=== PATIENT | male | born 1980 | race Caucasian/White ===

== ENCOUNTER 2017-09-02 10:18 | Emergency (ER) | payer BC ==
[2017-09-02 11:17] VITALS: BP 134/93
--- NOTE | 2017-09-02 12:16 | UC ---
Throat Pain/Nasal Matthew HPI - HPI Summary HPI Summary: PT STATES ILL WITH FLU 1-2 WEEKS AGO. ALL THE FLU SYMPTOMS RESOLVED EXCEPT FOR HIS SORE THROAT. HE DENIES FEVER OR TROUBLE WITH SWALLOW. HE ALSO NOTES A BUMP INSIDE HIS LOWER LIP FOR A "LONG TIME" HE WOULD LIKE CHECKED. NO HX REFLUX. - History of Current Complaint Chief Complaint: UCRespiratory Stated Complaint: SORE THROAT Time Seen by Provider: 09/02/17 11:44 Hx Obtained From: Patient Onset/Duration: Gradual Onset Pain Intensity: 4 Associated Signs & Symptoms: Positive: Negative - Epiglottits Risk Factors Epiglottis Risk Factors: Negative - Allergies/Home Medications Allergies/Adverse Reactions: Allergies Allergy/AdvReac Type Severity Reaction Status Date / Time No Known Allergies Allergy Verified 09/02/17 11:17 PMH/Surg Hx/FS Hx/Imm Hx Previously Healthy: Yes - Surgical History Surgical History: Yes Surgery Procedure, Year, and Place: left eye surgery for "lazy eye" - Family History Known Family History: Positive: None - Social History Alcohol Use: Rare Substance Use Type: None Smoking Status (MU): Never Smoked Tobacco - Immunization History Vaccination Up to Date: Yes Review of Systems Constitutional: Negative Skin: Negative Eyes: Negative ENT: Sore Throat Respiratory: Negative Cardiovascular: Negative Gastrointestinal: Negative Genitourinary: Negative Motor: Negative Neurovascular: Negative Musculoskeletal: Negative Neurological: Negative Psychological: Negative Is Patient Immunocompromised?: No All Other Systems Reviewed And Are Negative: Yes Physical Exam Triage Information Reviewed: Yes Appearance: Well-Appearing Vital Signs: Initial Vital Signs Temp 98.4 F 09/02/17 11:11 Pulse 84 09/02/17 11:11 Resp 18 09/02/17 11:11 BP 134/93 09/02/17 11:11 Pulse Ox 100 09/02/17 11:11 Vital Signs Reviewed: Yes Eye Exam: Normal ENT: Positive: Hearing grossly normal, Pharyngeal erythema, TMs normal, Uvula midline. Negative: Nasal congestion, Nasal drainage, Tonsillar swelling, Tonsillar exudate, Trismus, Muffled voice, Hoarse voice Neck: Positive: Supple, Nontender, No Lymphadenopathy Respiratory: Positive: Lungs clear, Normal breath sounds, No respiratory distress Cardiovascular: Positive: RRR, No Murmur, Pulses Normal Abdomen Description: Positive: Nontender, No Organomegaly, Soft Bowel Sounds: Positive: Present Neurological: Positive: Alert Psychological: Positive: Age Appropriate Behavior Skin Exam: Normal Diagnostics - Laboratory Diagnostic Studies Completed/Ordered: rapid strep=neg, tc=pending Throat Pain/Nasal Course/Dx - Course Course Of Treatment: rapid strep-neg. pharyngitis on exam thus will cover for presumptive bacterial infection given duration. will refer to ent for f/u of lower lip lesion-probable mucocele. - Differential Dx/Diagnosis Provider Diagnoses: pharyngitis. Low lip lesion Discharge - Discharge Plan Condition: Stable Disposition: HOME Prescriptions: Amoxicillin/Clavulanate TAB* [Augmentin TAB 875*] 875 mg PO BID 10 Days #20 tab Patient Education Materials: Pharyngitis (ED) Referrals: David Savage MD [Medical Doctor] - 5 Days
== END 2017-09-02 12:56 | disposition home or self-care (01) ==
LOC: UCCORT 10:18
DX: J02.9 Acute pharyngitis, unspecified (principal); K13.0 Diseases of lips
CPT/HCPCS: 87070; 87651; 99212; G0463

== ENCOUNTER 2018-02-23 11:10 | Emergency (ER) | payer BC ==
[2018-02-23] MEDS ORDERED: Lidocaine 2% W/EPI 1:100,000* 20 ML MDV INJ ONE (12:53)
[2018-02-23] MEDS ORDERED: Tetan/Diph/Pertus SYR(Tdap)* 0.5 ML SYR(BOOSTRIX) use SYR IM ONE (12:58)
[2018-02-23] MEDS ORDERED: Naproxen TAB* 250 MG PO ONE (13:02)
--- NOTE | 2018-02-23 13:07 | UC ---
Head Injury HPI - HPI Summary HPI Summary: 37 year old male presents with head injury s/p fall. States he slipped in the shower this morning and struck his head on corner of ceramic tile wall. Sustained laceration to right forehead above right eye. Bleeding controlled at time of exam. Also injured left index and ring finger when he tried to grab the shower head as well as right lateral thigh which he struck on unknown part of tub. Has mild ALEMAN. He is able to recall entire event. Was immediately ambulatory after the fall and at clinic. Denies LOC, visual disturbances, dizziness, weakness, chest pain, palpitations, shortness of breath, neck pain, abdominal pain, nausea or vomiting. - History Of Current Complaint Chief Complaint: UCLaceration Stated Complaint: FALL,HEAD LACERATION Time Seen by Provider: 02/23/18 12:38 Hx Obtained From: Patient Onset/Duration: Sudden Onset Pain Intensity: 7 Associated Signs And Symptoms: Negative: LOC (Time In Secs./Mins/Hrs), Confusion , Memory Loss, Seizure, Neck Pain, Nausea, Vomiting - Risk Factors SDH Risk Factor: Negative - Allergies/Home Medications Allergies/Adverse Reactions: Allergies Allergy/AdvReac Type Severity Reaction Status Date / Time No Known Allergies Allergy Verified 02/23/18 11:27 Home Medications: Home Medications NK [No Home Medications Reported] 02/23/18 [History Confirmed 02/23/18] PMH/Surg Hx/FS Hx/Imm Hx - Additional Past Medical History Additional PMH: non-contributory Previously Healthy: Yes - Surgical History Surgical History: Yes Surgery Procedure, Year, and Place: left eye surgery for "lazy eye" - Family History Known Family History: Positive: None - Social History Occupation: Employed Full-time Lives: With Family Alcohol Use: Rare Substance Use Type: None Smoking Status (MU): Never Smoked Tobacco - Immunization History Most Recent Tetanus Shot: Not UTD Vaccination Up to Date: Yes Review of Systems Constitutional: Negative Skin: Other - laceration forehead, skin tear left index finger, hematoma left lateral thigh Eyes: Negative ENT: Negative Respiratory: Negative Cardiovascular: Negative Gastrointestinal: Negative Motor: Negative Neurovascular: Negative Musculoskeletal: Other: - pain left ring finger Neurological: Headache Is Patient Immunocompromised?: No All Other Systems Reviewed And Are Negative: Yes Physical Exam Triage Information Reviewed: Yes Appearance: Well-Appearing, No Pain Distress, Well-Nourished Vital Signs: Initial Vital Signs Temp 98.7 F 02/23/18 11:22 Pulse 78 02/23/18 11:22 Resp 18 02/23/18 11:22 BP 151/85 02/23/18 11:22 Pulse Ox 99 02/23/18 11:22 Vital Signs Reviewed: Yes Eyes: Positive: Conjunctiva Clear, Other: - PERRL ENT: Positive: Normal ENT inspection Neck: Positive: Supple, Nontender Respiratory: Positive: Chest non-tender, Lungs clear, Normal breath sounds, No respiratory distress Cardiovascular: Positive: RRR, No Murmur, Pulses Normal, Brisk Capillary Refill Abdomen Description: Positive: Nontender, No Organomegaly, Soft Musculoskeletal: Positive: Strength Intact, ROM Intact, Other: - tenderness left ring finger over middle phalanx Neurological Exam: Normal Skin: Positive: significant lesion(s) - Linear laceration right forehead over eyebrow involving subcutaneous layer. Small skin tear to palmar aspect of left ring finger over proximal phalanx. Large hematoma approximately 4-5 cm in diameter to right lateral thigh. Procedures - Laceration/Wound Repair 1 Location: head - right forehead immediately above the eyebrow Description: Linear Anesthesia: Local, 2.0%, Epi - 2 ml Length, Depth and Shape: 4 cm linear involving the sub cutaneous layer Betadine Prep?: Yes Irrigated w/ Saline (ccs): 250 Laceration/Wound Explored: clean Closure: Multilayer Suture Type: Prolene - 5.0, Other - 5.0 polysorb Number of Sutures: 11 - running suture with 5.0 prolene 11 throws Layer Closure?: Yes - 2 subcutanous interrupted sutures with 5.0 polysorb Sterile Dressing Applied?: Yes - antibiotic ointment and non-stick guaze Diagnostics - Radiology No standard instances Xray Interpretation: No Acute Changes - left ring finger Radiology Interpretation Completed By: ED Physician - Preliminary reading by myself, Radiologist Head Injury Course/Dx - Course Course Of Treatment: 37 year old male with closed head injury, laceration right forehead, superficial skin tear left index finger, and hematoma right lateral thigh s/p slip and fall in shower. Neurologically intact. Layered laceration repair performed. X-ray left ring finger negative for fracture/dislocation. Superficial skin tear to left index finger that does not require repair. Hematoma right lateral thigh. Reviewed warning symptoms of closed head injury, wound care, signs and symptoms infection, and timing of suture removal with patient. Verbalizes understanding and agrees with POC. - Differential Dx/Diagnosis Provider Diagnoses: right forehead laceration, superficial skin tear left index finger, contusion right lateral thigh Discharge - Sign-Out/Discharge Documenting (check all that apply): Patient Departure - Discharge Plan Condition: Stable Disposition: HOME Patient Education Materials: Care For Your Stitches (ED), Head Injury (ED), Hematoma (ED), Facial Laceration (ED) Referrals: Nestor Garcia MD [Primary Care Provider] - 7 Days (suture removal) Additional Instructions: You had both internal and external sutures used to repair your laceration today. The internal sutures will dissolve on their own over time however the external sutures will need to be removed in 7 days. You may return here or go to your primary care provider to have this done. The numbing medication used during the laceration repair will wear off in about 3-4 hours. You may take an over the counter pain medication such as acetaminophen (Tylenol) or ibuprofen (Advil, Motrin) according to directions as needed for pain. You should keep the dressing applied to your wound in place for next 24 hours. Avoid getting this wet. After 24 hours, you may remove the dressing and shower as usual. Avoid submerging the wound under water to avoid infection. You should gently clean the wound at least once every day with soap and water. Apply a small amount of antibiotic ointment such as bacitracin to the wound and keep covered with a bandage. This should be changes at least once daily or anytime the dressing becomes wet or soiled. Watch for signs of wound infection such as fever greater than 100.5 F, increased pain, redness, swelling or pus draining from the wound. Seek immediate medical attention should any of these occur. Avoid exposing the wound to the sun to minimize scarring. Once the wound is healed, you should apply sunscreen to the area. Be sure to review the information provided to you regarding head injuries especially warning signs that would require immediate medical attention in the emergency room. Apply ice to the hematoma on your right thigh for 15-20 minutes 3-4 times a day for next few days to help reduce swelling. Keep the skin tear on your left index finger clean with soap and water and cover with bandage. Watch for signs of infection as above. Your tetanus was up dated today. Be sure to inform your primary care provider of this for their records. - Billing Disposition and Condition Condition: STABLE Disposition: Home Images Head: 1 - laceration Hands: 1 - small superficial skin tear 0.5 cm in diamter Front/Back of Body, Lg ([place]): 1 - 4-5 cm hematoma
[2018-02-23 13:25] VITALS: BP 139/92
--- NOTE | 2018-02-23 13:30 | RAD ---
INDICATION: Left ring finger injury. TECHNIQUE: 3 views of the left ring finger were obtained. FINDINGS: The bones are normal alignment. No fracture is seen. Joint spaces appear maintained. IMPRESSION: NO EVIDENCE FOR FRACTURE.
== END 2018-02-23 14:25 | disposition home or self-care (01) ==
LOC: UCCORT 11:10
DX: S01.81XA Laceration without foreign body of other part of head, initial encounter (principal); S61.211A Laceration without foreign body of left index finger without damage to nail, initial encounter; S70.11XA Contusion of right thigh, initial encounter; W01.198A Fall on same level from slipping, tripping and stumbling with subsequent striking against other object, initial encounter; Y93.E1 Activity, personal bathing and showering; Y92.002 Bathroom of unspecified non-institutional (private) residence as the place of occurrence of the external cause; Z23 Encounter for immunization
CPT/HCPCS: 12052; 73140; 90471; 90715; 99212; A9270-GY; G0463

== ENCOUNTER 2018-03-04 11:04 | Emergency (ER) | payer BC ==
[2018-03-04 11:26] VITALS: BP 148/85
--- NOTE | 2018-03-04 11:28 | UC ---
HPI Wound/Suture Re-check - HPI Summary HPI Summary: Pt presents for suture removal above right eye brow that were placed here on 07/01. - History Of Current Complaint Chief Complaint: AYLAkin Stated Complaint: REMOVAL OF STITCHES Time Seen by Provider: 03/04/18 11:27 Hx Obtained From: Patient Onset/Duration: Sudden Onset, Still Present Severity: Mild Pain Intensity: 0 - Allergies/Home Medications Allergies/Adverse Reactions: Allergies Allergy/AdvReac Type Severity Reaction Status Date / Time No Known Allergies Allergy Verified 03/04/18 11:22 PMH/Surg Hx/FS Hx/Imm Hx Previously Healthy: Yes - Surgical History Surgical History: Yes Surgery Procedure, Year, and Place: left eye surgery for "lazy eye" - Family History Known Family History: Positive: Cardiac Disease - Social History Occupation: Employed Full-time Lives: With Family Alcohol Use: Rare Substance Use Type: None Smoking Status (MU): Never Smoked Tobacco Have You Smoked in the Last Year: No - Immunization History Most Recent Tetanus Shot: Not UTD Vaccination Up to Date: Yes Review of Systems Constitutional: Negative Skin: Other - sutures in tact Eyes: Negative ENT: Negative Respiratory: Negative Cardiovascular: Negative Gastrointestinal: Negative Genitourinary: Negative Motor: Negative Neurovascular: Negative Musculoskeletal: Negative Neurological: Negative Psychological: Negative Is Patient Immunocompromised?: No All Other Systems Reviewed And Are Negative: Yes Physical Exam Triage Information Reviewed: Yes Appearance: Well-Appearing Vital Signs: Initial Vital Signs Temp 98.3 F 03/04/18 11:23 Pulse 80 03/04/18 11:23 Resp 14 03/04/18 11:23 BP 148/85 03/04/18 11:23 Pulse Ox 97 03/04/18 11:23 Vital Signs Reviewed: Yes Eye Exam: Normal ENT Exam: Normal Dental Exam: Normal Neck exam: Normal Respiratory: Positive: No respiratory distress Musculoskeletal Exam: Normal Neurological Exam: Normal Psychological Exam: Normal Skin Exam: Other - sutures intact, edges well approximated, no erythema, discharge, swelling or tenderness at site. Course/Dx - Course Course Of Treatment: one continuous suture removed from above right eyebrow. Pt tolerated well. wound healing without sign or sx of infection. edges well approximated. - Differential Dx - Laceration/Wound Differential Diagnoses: Suture Removal Provider Diagnoses: suture removal Discharge - Sign-Out/Discharge Documenting (check all that apply): Patient Departure All imaging exams completed and their final reports reviewed: No Studies - Discharge Plan Condition: Stable Disposition: HOME Patient Education Materials: Stitches Removal (ED) Referrals: Nestor Garcia MD [Primary Care Provider] - If Needed - Billing Disposition and Condition Condition: STABLE Disposition: Home
== END 2018-03-04 11:40 | disposition home or self-care (01) ==
LOC: UCCORT 11:04
DX: Z48.02 Encounter for removal of sutures (principal)

== ENCOUNTER 2018-09-16 15:36 | Emergency (ER) | payer BC ==
[2018-09-16 15:42] VITALS: BP 149/86
--- NOTE | 2018-09-16 15:58 | UC ---
Respiratory Complaint HPI - HPI Summary HPI Summary: 38 yo male presents with dry cough for 1 week. He has been taking mucinex and theraflu with no relief. Denies fever, chills, sinus symptoms, sore throat, SOB , chest pain, n/v. He does not smoke. - History of Current Complaint Chief Complaint: UCGeneralIllness Stated Complaint: COUGH Time Seen by Provider: 09/16/18 15:58 Hx Obtained From: Patient Onset/Duration: Gradual Onset Severity Currently: None Pain Intensity: 0 Character: Cough: Nonproductive - Allergies/Home Medications Allergies/Adverse Reactions: Allergies Allergy/AdvReac Type Severity Reaction Status Date / Time No Known Allergies Allergy Verified 09/16/18 15:42 Home Medications: Home Medications D-Methorphan/PE/Acetaminophen [Theraflu Expressmax Sever 20-10-650 mg/30Ml] 1 liq PO 09/16/18 [History] Guaifenesin/Dextromethorphan [Cough Dm Syrup] 118 ml PO 09/16/18 [History] PMH/Surg Hx/FS Hx/Imm Hx - Additional Past Medical History Additional PMH: None - Surgical History Surgical History: Yes Surgery Procedure, Year, and Place: left eye surgery for "lazy eye" - Family History Known Family History: Positive: Cardiac Disease - Social History Occupation: Employed Full-time Lives: With Family Alcohol Use: Rare Substance Use Type: None Smoking Status (MU): Never Smoked Tobacco Have You Smoked in the Last Year: No - Immunization History Most Recent Tetanus Shot: Not UTD Vaccination Up to Date: Yes Review of Systems All Other Systems Reviewed And Are Negative: Yes Constitutional: Positive: Negative Skin: Positive: Negative Eyes: Positive: Negative ENT: Positive: Negative Respiratory: Positive: Cough Cardiovascular: Positive: Negative Gastrointestinal: Positive: Negative Neurovascular: Positive: Negative Neurological: Positive: Negative Psychological: Positive: Negative Physical Exam - Summary Physical Exam Summary: GENERAL: NAD. WDWN. No pain distress. SKIN: No rashes, sores, lesions, or open wounds. HEENT: Head: AT/NC Eyes: EOM intact. Conjunctiva clear without inflammation or discharge. Ears: Hearing grossly normal. TMs intact, no bulging, erythema, or edema. Nose: Nasal mucosa pink and moist. NTTP maxillary and frontal sinus. Throat: Posterior oropharynx without exudates, erythema, or tonsillar enlargement. Uvula midline. NECK: Supple. Nontender. No lymphadenopathy. CHEST: CTAB. No r/r/w. No accessory muscle use. Breathing comfortably and in no distress. CV: RRR. Without m/r/g. Pulses intact. Cap refill <2seconds NEURO: Alert. PSYCH: Age appropriate behavior. Triage Information Reviewed: Yes Vital Signs: Initial Vital Signs Temp 99.2 F 09/16/18 15:38 Pulse 88 09/16/18 15:38 Resp 18 09/16/18 15:38 BP 149/86 09/16/18 15:38 Pulse Ox 98 09/16/18 15:38 Vital Signs Reviewed: Yes Respiratory Course/Dx - Course Course Of Treatment: Afebrile and exam WNL - suspect viral cough. - Differential Dx/Diagnosis Provider Diagnosis: Cough Discharge - Sign-Out/Discharge Documenting (check all that apply): Patient Departure All imaging exams completed and their final reports reviewed: No Studies - Discharge Plan Condition: Stable Disposition: HOME Prescriptions: Benzonatate CAP* [Tessalon 100 MG CAP*] 100 mg PO TID PRN #21 cap PRN Reason: Cough Codeine Phosphate/Guaifenesin [Guaifen-Codeine 100-10 mg/5 ml] 5 ml PO BEDTIME PRN #35 ml MDD 5mL PRN Reason: Cough Patient Education Materials: Acute Cough (ED) Referrals: Nestor Garcia MD [Primary Care Provider] - Additional Instructions: If you develop a fever, shortness of breath, chest pain, new or worsening symptoms - please call your PCP or go to the ED. Your blood pressure was high at todays visit. Please see your primary provider within 4 weeks for recheck and re-evaluation. - Billing Disposition and Condition Condition: STABLE Disposition: Home
== END 2018-09-16 16:11 | disposition home or self-care (01) ==
LOC: UCEAST 15:36
DX: R05 Cough (principal)
CPT/HCPCS: 99212; G0463

== ENCOUNTER 2019-06-05 12:24 | Emergency (ER) | payer BC ==
[2019-06-05 13:00] VITALS: BP 148/91
--- NOTE | 2019-06-05 13:46 | ED ---
GI/ HPI - HPI Summary HPI Summary: 38 yr old male with the complaint of dysuria today, but afew days of feeling like he has no need to urinate at all. He states he gets up to try to urinate, but nothing comes. He has no back pain, no pain in the scrotum or penis at this time. No discharge. No focal weakness or numbness in the legs. - History of Current Complaint Chief Complaint: UCGU Time Seen by Provider: 06/05/19 13:15 Stated Complaint: URINARY COMPLAINT Pain Intensity: 0 - Allergy/Home Medications Allergies/Adverse Reactions: Allergies Allergy/AdvReac Type Severity Reaction Status Date / Time No Known Allergies Allergy Verified 06/05/19 13:00 Home Medications: Home Medications PARoxetine HCL TAB* [Paxil TAB*] 20 mg PO DAILY 06/05/19 [History Confirmed ] PMH/Surg Hx/FS Hx/Imm Hx Endocrine/Hematology History: Denies: Hx Diabetes, Hx Thyroid Disease Cardiovascular History: Denies: Hx Hypertension Respiratory History: Denies: Hx Asthma, Hx Chronic Obstructive Pulmonary Disease (COPD) GI History: Denies: Hx Ulcer - Surgical History Surgery Procedure, Year, and Place: left eye surgery for "lazy eye" Infectious Disease History: No Infectious Disease History: Denies: Hx Clostridium Difficile, Hx Hepatitis, Hx Human Immunodeficiency Virus (HIV), Hx of Known/Suspected MRSA, Hx Shingles, Hx Tuberculosis, Hx Known/ Suspected VRE, Hx Known/Suspected VRSA, History Other Infectious Disease, Traveled Outside the [place] in Last 30 Days - Family History Known Family History: Positive: None, Cardiac Disease - Social History Alcohol Use: Rare Substance Use Type: Reports: None Smoking Status (MU): Never Smoked Tobacco Have You Smoked in the Last Year: No Review of Systems Constitutional: Negative Positive: see HPI, dysuria All Other Systems Reviewed And Are Negative: Yes Physical Exam Triage Information Reviewed: Yes Vital Signs On Initial Exam: Initial Vitals Temp Pulse Resp BP Pulse Ox 99.3 F 92 18 148/91 100 06/05/19 12:54 06/05/19 12:54 06/05/19 12:54 06/05/19 12:54 06/05/19 12:54 Vital Signs Reviewed: Yes Appearance: Positive: Well-Appearing, No Pain Distress Skin: Positive: Warm, Skin Color Reflects Adequate Perfusion Head/Face: Positive: Normal Head/Face Inspection Eyes: Positive: EOMI ENT: Positive: Normal ENT inspection Neck: Positive: Nontender Respiratory/Lung Sounds: Positive: Clear to Auscultation, Breath Sounds Present Cardiovascular: Positive: RRR. Negative: Murmur Abdomen Description: Positive: Nontender. Negative: CVA Tenderness (R), CVA Tenderness (L) Male Genital Exam: Positive: Normal Genitalia, No Hernia. Negative: Hernia Mass , Scrotum Tenderness (R), Scrotum Tenderness (L), Testicular Tenderness (R), Testicular Tenderness (L), Urethral Discharge Musculoskeletal: Positive: Strength/ROM Intact Neurological: Positive: Sensory/Motor Intact, Alert, Oriented to Person Place, Time, CN Intact II-III, Normal Gait, Speech Normal Psychiatric: Positive: Normal Diagnostics - Vital Signs Vital Signs Temp Pulse Resp BP Pulse Ox 06/05/19 12:54 99.3 F 92 18 148/91 100 - Laboratory Lab Results: Lab Results 06/05/19 Range/Units 13:24 POC Urine Color Yellow POC Urine Clarity Clear POC Urine pH 7.0 (5-9) POC Ur Specif [place] 1.020 (1.010-1.030) POC Urine Protein 1+ A (Negative) POC Ur Glucose (UA) Negative (Negative) POC Urine Ketones Negative (Negative) POC Urine Blood Trace-intact A (Negative) POC Urine Nitrite Negative (Negative) POC Urine Bilirubin Negative (Negative) POC Urine Urobilinogen 1.0 (Negative) POC U Leukocyte Esteras Negative (Negative) Lab Statement: Any lab studies that have been ordered have been reviewed, and results considered in the medical decision making process. GIGU Course/Dx - Course Course Of Treatment: 38 yr old with feeling he doesn't have to urinate. He will go to the ER for further labs and work up if he has no urine output or further concerns. He has some dysuria today, and a gc chlamydia is sent. Overall he appears very comfortable. Bladder is non tender on exam. FU with PMD for BP check. - Diagnoses Provider Diagnoses: Dysuria, Hypertension Discharge ED - Sign-Out/Discharge Documenting (check all that apply): Patient Departure All imaging exams completed and their final reports reviewed: No Studies - Discharge Plan Condition: Good Disposition: HOME-RECOMMEND TO ED Patient Education Materials: Dysuria (ED), Hypertension (ED) Referrals: Nestor Garcia MD [Primary Care Provider] - 1 Day Additional Instructions: If you feel you are not able to urinate, you should go to the ER for further evaluation to be sure you are not in urinary retention and to be sure that your kidney function is normal. - Billing Disposition and Condition Condition: GOOD Disposition: Home-Recommend to ED
[2019-06-08 12:56] LABS: Chlamydia trachomatis NAA Negative (Negative); Neisseria gonorrhoeae (GC) NAA Negative (Negative)
== END 2019-06-05 14:02 | disposition home health service (06) ==
LOC: UCCORT 12:24
DX: R30.0 Dysuria (principal); I10 Essential (primary) hypertension
CPT/HCPCS: 81003; 87491; 87591; 99212; G0463